=== PATIENT | male | born 1965 | race Two or more races ===

== ENCOUNTER 2020-03-01 06:45 | Day surgery (SDC) | payer OTHER ==
[~2020-03-01 06:45] MED LIST: CRESTOR20 MG PO
[2020-03-01] MEDS ORDERED: COLACE100 MG PO (16:04)
[2020-03-01] MEDS ORDERED: PERCOCET 5-3251 EACH PO (16:04)
[2020-03-01] MEDS ORDERED: NEURONTIN600 M1 PO (16:04)
== END 2020-03-01 18:35 | disposition home or self-care (01) ==
LOC: CIR.AMB 06:45
PROVIDERS: ATTEND Surgery
DX: K40.90 Unilateral inguinal hernia, without obstruction or gangrene, not specified as recurrent (principal); Z20.828 Contact with and (suspected) exposure to other viral communicable diseases